=== PATIENT | female | born 1965 | race Caucasian/White ===

== ENCOUNTER 2019-09-15 14:18 | Outpatient (CLI) | payer OTHER ==
--- NOTE | 2019-09-15 15:23 | BD ---
DEXA BONE DENSITY STUDY: HISTORY: Osteoporosis. FINDINGS: LUMBAR SPINE BMD (g/cm2) T-SCORE L1 0.696 -2.7 L2 0.728 -2.7 L3 0.766 -2.9 L4 0.699 -3.3 TOTAL 0.722 -3.0 Evidence for osteoporosis with high risk for fracture. FEMUR MEAN BMD (g/cm2) T-SCORE FEMORAL NECK 0.519 -3.0 TOTAL 0.622 -2.6 Evidence for osteoporosis with high risk for fracture. POS: [facility]
== END 2019-09-15 14:19 | disposition home or self-care (01) ==
LOC: BICMAMMO 14:18
PROVIDERS: ATTEND Family Medicine
DX: M81.0 Age-related osteoporosis without current pathological fracture (principal)
CPT/HCPCS: 77080